=== PATIENT | male | born 1960 | race Caucasian/White ===

== ENCOUNTER 2020-03-07 16:53 | Outpatient (CLI) | payer BC, SELFPAY ==
[2020-03-07 17:18] LABS: Add Urine Microscopic? YES; Appearance Urine Clear (Clear); Bilirubin Urine Negative (Negative); Blood Urine Negative (Negative); Color Urine Yellow (Yellow); Glucose Urine UA 3+ mg/dL (Negative); Ketones Urine Negative (Negative); Leukocyte Esterase Ur Negative LEU/UL (NEGATIVE); Mucus Urine Rare /lpf; Nitrate Urine Negative (Negative); Protein Urine Negative (Negative); RBC Urine 0-2 /hpf (0-2); Urobilinogen Urine Negative mg/dL (<2.0); WBC Urine 0-3 /hpf (0-3)
[2020-03-07 17:25] LABS: Specific Grav Ur 1.033 (1.001-1.035)
== END 2020-03-07 16:54 | disposition home or self-care (01) ==
LOC: ANHLAB 16:55
PROVIDERS: PCP Internal Medicine; Visit Provider Physician Assistant
DX: R10.9 Unspecified abdominal pain (principal)
CPT/HCPCS: 81001

== ENCOUNTER 2020-03-08 12:28 | Outpatient (CLI) | payer BC, SELFPAY ==
--- NOTE | ~2020-03-08 | CT_ITS ---
EXAMINATION: CT abdomen pelvis w con DATE: 03/08/2020 13:10 INDICATION: Right-sided low back pain TECHNIQUE: Computed tomography (CT) of the abdomen and pelvis was performed with 100 mL Omnipaque-350 intravenous contrast. Automated exposure control and iterative reconstruction technique were employe d. The dose-length product was 1357.75 mGy-cm. COMPARISON: None FINDINGS: Mild atelectasis in the lingula, right middle and bilateral lower lobes. Heart size is normal. Athero sclerotic coronary artery calcific a cyst. No pericardial or pleural effusion. Diffuse hepatic steato sis. Gallbladder, spleen, pancreas and bilateral adrenal glands are normal. Normal variant retained f etal lobulation the kidneys which enhance symmetrically with no hydronephrosis. Bilateral ureters are normal with no urolithiasis. Bladder is normal. Normal appendix. No abnormal bowel wall thickening o r obstruction. No free intraperitoneal gas or fluid. No pathologically enlarged abdominal or pelvic l ymphadenopathy. Mild lumbar dextrocurvature. Moderate thoracolumbar spondylosis. IMPRESSION: 1. No acute intra-abdominal/pelvic process. Reviewed, dictated and finalized at location B.
[2020-03-08 13:07] LABS: Estimated Glomerular Filt Rate > 60
== END 2020-03-08 12:29 | disposition home or self-care (01) ==
LOC: ANHIMG 12:41
PROVIDERS: PCP Internal Medicine; Visit Provider Physician Assistant
DX: M54.5 Low back pain (principal); G89.29 Other chronic pain
CPT/HCPCS: 74177; Q9967

== ENCOUNTER 2021-10-09 07:31 | Outpatient (CLI) | payer BC, SELFPAY ==
--- NOTE | 2021-10-23 13:54 | WPDSLEEPSTUD ---
Sleep Study Date of Study: 10/09/21 Ordering Provider: Johann Wilcox DO Interpreting Physician: Paula Acharya DO Sleep Study Type: Split Polysomnogram Height: 1.73 m Weight: 109.316 kg Body Mass Index: 36.6 Neck Circumference (inches): 18.5 Brock: 10 Reason for Sleep Study Unrefreshing sleep despite being on CPAP Sleep History The patient is a 61-year-old male with diabetes, hyperlipidemia, hypertension, GERD, CINDY and history of tobacco use had a sleep study ordered by his primary care for evaluation of 4 daytime sleepiness. The patient rarely awakens from sleep short of breath. He occasionally awakens at night with heartburn, belching or cough. He frequently snores loud enough that others complain. Rarely has trouble sleeping when he has a cold. He occasionally wakes up gasping for air throughout the night. He frequently has breathing problems at night observed by himself or others. He occasionally sweats excessively at night. He rarely has heart palpitations or irregular heartbeats during the night. He occasionally falls asleep during the day but never while driving. He rarely has trouble at school or work due to sleepiness. He denies sleep paralysis, cataplexy and hypnagogic / hypnopompic hallucinations. He rarely has nightmares. He occasionally remembers his dreams. He occasionally has thoughts racing through his mind. He rarely feels sad or depressed. He occasionally has anxiety. He rarely has muscular tension. He denies noticing parts of his body jerk. He frequently kicks during the night. He rarely experiences crawling and aching feelings in his legs but frequently has leg pain during the night. He denies grinding his teeth during sleep awakening with morning jaw pain. He is occasionally bothered by pain during the day and occasionally awakened by pain during the night. He occasionally wakes up feeling stiff in the morning. He occasionally wakes up with sore or achy muscles. He rarely wakes up in the neck or spine joints. He goes to bed at 10:30 p.m. on weekdays and 11:30 p.m. on weekends. It takes him 15 minutes to fall asleep. He wakes up 8 times throughout the night for unknown reasons. He is able to fall back asleep within minutes after adjusting his position. He wakes up at 6:30 a.m. on weekdays and 8:00 a.m. on the weekends. He typically gets 7 hours of sleep per night. He will stay in bed for 10 minutes after waking up in the morning. He currently lives with his . He does not consume any caffeinated beverages within 2 hours of bedtime. He does not engage in physical exercise before bedtime. Watch television before falling asleep. He he denies taking naps in the afternoon or the evening. He drinks 2 cups of caffeinated beverage per day. He quit smoking 32 years ago. He denies alcohol or recreational drug use. [facility] Past Medical History Medical History (Updated 10/23/21 @ 17:58 by Paula Acharya DO) Anxiety Dyslipidemia Essential (primary) hypertension Gastroesophageal reflux disease without esophagitis CINDY (obstructive sleep apnea) Pure hypercholesterolemia Type 2 diabetes mellitus with hyperglycemia Surgical History Surgical History History of surgery on arm right arm bicep reattachment Family History Family History Mother Patient's mother is Carcinoma of colon Family history of arthritis Family history of malignant neoplasm Family history of diabetes mellitus in first degree relative Father Patient's father is Family history of liver disease Family history of malignant neoplasm Family history of heart disease in male family member before age 55 Sibling Family history of mental disorder Depression Family history of diabetes mellitus in first degree relative Other Cerebrovascular accident Family history of congest
[2021-10-23 18:01] VITALS: BMI 36.6
== END 2021-10-10 06:57 | disposition home or self-care (01) ==
PROVIDERS: PCP Internal Medicine; Visit Provider Internal Medicine
DX: G47.33 Obstructive sleep apnea (adult) (pediatric) (principal); G47.61 Periodic limb movement disorder
CPT/HCPCS: 95811

== ENCOUNTER 2022-05-07 10:55 | Outpatient (CLI) | payer BC, SELFPAY ==
--- NOTE | ~2022-05-07 | XR_ITS ---
Left Knee Technique: AP, lateral, and sunrise views were obtained. Clinical History: Pain Findings: No fracture or dislocation is seen. Osseous alignment is anatomic. Minimal patellar spurrin g noted. Soft tissues are unremarkable. No joint effusion is seen. Impression: Minimal patellar degenerative spurring. No fracture or dislocation. Reviewed, dictated and finalized at location [] IOLOGIST Impression: Minimal patellar degenerative spurring. No fracture or dislocation.
== END 2022-05-07 10:56 | disposition home or self-care (01) ==
PROVIDERS: PCP Internal Medicine; Visit Provider Internal Medicine
DX: M25.562 Pain in left knee (principal)
CPT/HCPCS: 73562

== ENCOUNTER → 2022-05-15 13:09 | Outpatient (CLI) | payer BC, SELFPAY ==
--- NOTE | ~2022-05-15 | US_ITS ---
Ultrasound of the left lower extremity CLINICAL HISTORY: Left knee pain TECHNIQUE: Sonographic imaging of the posterior left knee was performed. FINDINGS: No fluid collection or Pozo's cyst identified. No abnormal mass lesion identified. No sign ificant abnormality seen. IMPRESSION: No significant abnormality seen at the posterior left knee. Reviewed, dictated and finalized at [facility]. CHER FEEDER
== END ==
PROVIDERS: PCP Internal Medicine; Visit Provider Internal Medicine
DX: M25.562 Pain in left knee (principal)
CPT/HCPCS: 76882

== ENCOUNTER 2022-05-15 14:07 | Outpatient (CLI) | payer BC, SELFPAY ==
[2022-05-15 23:16] LABS: Influenza A QL RT-PCR Positive (Negative); Influenza B QL RT-PCR Negative (Negative); SARS-CoV-2 RNA PCR Negative
== END 2022-05-15 14:08 | disposition home or self-care (01) ==
LOC: ANHLAB 14:09
PROVIDERS: PCP Internal Medicine; Visit Provider Internal Medicine
DX: R50.9 Fever, unspecified (principal); Z20.822 Contact with and (suspected) exposure to COVID-19
CPT/HCPCS: 87636

== ENCOUNTER → 2022-05-31 12:18 | Outpatient (CLI) | payer BC, SELFPAY ==
--- NOTE | ~2022-05-31 | MR_ITS ---
EXAMINATION: MR knee LT wo con DATE: 05/31/2022 13:38 INDICATION: Left knee pain. TECHNIQUE: Magnetic resonance imaging (MRI) of the left knee was performed without intravenous contra st. Sequences included axial PD-weighted FS FSE, coronal PD-weighted FSE and PD-weighted FS FSE, sagi ttal PD-weighted FSE, and sagittal T2-weighted FS FSE. COMPARISON: Left knee radiographs 05/07/2022 FINDINGS: Medial compartment: There is an undersurface horizontal tear involving posterior horn and body of medial meniscus. There is partial-thickness cartilage loss of tibial condyle, worst at the anteromedial articular surface wh ere there is mild subchondral edema-like marrow signal intensity. There is partial-thickness cartilag e loss of femoral condyle, deep at the lateral articular surface. Osteophytes are noted. Lateral compartment: There is an upper surface horizontal tear of body of lateral meniscus. There is cartilage surface irr egularity of tibial condyle and femoral condyle. Osteophytes are noted. Patellofemoral compartment: There is deep partial thickness cartilage loss of patellar medial facet with mild subchondral edema-l nabila signal intensity. There is deep partial thickness cartilage loss of medial trochlea. There is ful l-thickness cartilage loss of distal central trochlea with mild subchondral edema-like signal intensi ty. Osteophytes are noted. Ligaments and tendons: The anterior and posterior cruciate ligaments are normal. There are changes of prior sprains of media l collateral ligament and fibular collateral ligament characterized by thickening and increased signa l intensity. There is mild patellar tendinopathy. Fluid: There is a moderate-sized knee joint effusion. There is a moderate-sized Pozo's cyst. There is mild prepatellar and superficial infrapatellar bursitis. IMPRESSION: 1. Severe chondrosis of patellofemoral compartment, moderate chondrosis of medial compartment, and mi ld chondrosis of lateral compartment. 2. Tears of medial and lateral menisci. 3. Moderate-sized knee joint effusion. 4. Moderate-sized Pozo's cyst. Reviewed, dictated and finalized at location A. [employer] SUPERVISOR IMPRESSION: 1. Severe chondrosis of patellofemoral compartment, moderate chondrosis of medi al compartment, and mild chondrosis of lateral compartment. 2. Tears of medial and lateral menisci. 3. Moderate-sized knee joint effusion. 4. Moderate-sized Pozo's cyst.
== END ==
PROVIDERS: PCP Internal Medicine; Visit Provider Internal Medicine
DX: M25.562 Pain in left knee (principal); M22.2X2 Patellofemoral disorders, left knee; S83.282A Other tear of lateral meniscus, current injury, left knee, initial encounter; S83.242A Other tear of medial meniscus, current injury, left knee, initial encounter; M25.462 Effusion, left knee; M71.22 Synovial cyst of popliteal space [Baker], left knee
CPT/HCPCS: 73721

== ENCOUNTER 2022-06-04 07:50 | Outpatient (RCR) | payer BC, SELFPAY ==
--- NOTE | 2022-06-04 09:22 | PTOPEVAL1 ---
Assessment and note entered by Ashley Holbrook PT Evaluation Information Assessment Status Evaluation Diagnosis L knee posterior medial and lateral meniscal tear Onset Apr 28, 2022 Subjective Information pain in knee after putting up [place] lights; general dr gave him steroids, then to ortho dr and had MRI; had injection into knee yesterday; currently on anti inflammatory; knee pain is better than initial injury; dr discussed surgery with him, but going to try therapy and see how knee pain is; Reported Pain Level Pain Score Self Report L knee Additional Pain Score Comments pain range of 0-4/10; radiating lateral knee to anterior knee; throbbing pain; is less than was initially; increase pain with bending knee and stairs; decrease pain with sit, rest, ice, meds; sleeping is OK; is doing all of his home and work tasks; Assessment PT Clinical Summary Charly Tsai - has the diagnosis of L knee pain, posterior medial and lateral meniscal tears per MRI. He reports his pain is less and he is doing more activity. He avoids stairs due to knee pain, and bending his knee did hurt, but not anymore. There is not any swelling of his knee. With the evaluation, L knee ROM is 0-120' and without pain; single leg standing does not increase his pain; during the evaluation, there was not any pain reported with the motions and testing; He has slight decreased L hip ER motion, with issues putting on his L shoe and sock and tightness over B hamstrings. He was educated and issued a home exercise program for strengthening his knee and was instructed to increase activity as tolerated. He is now doing all of his usual home and work tasks, but avoiding the stairs. His plan of treatment is 0-2x/week for 4 weeks; he is to call if he has any questions or if needs an appointment for additional treatment. He is to monitor his pain and if there is any swelling or issues with his knee. Plan of Care Interventions Electrical Stimulation,Hot Pack/Cold Pack,Manual Therapy,Neuro Re-education,Therapeutic Activities, Therapeutic Exercise PT Services Indicated Yes Treatment Frequency and 0-2x/wk for 4 weeks Duration
--- NOTE | 2022-08-09 13:18 | PCPTNOTE ---
PHYSICAL THERAPY DISCHARGE 08-09-22 Attending Provider: Lino Matos MD Patient:Eulalio Silva Date of :1960 Charly has not returned for any further treatments since the eval on 06/04/2022, for L knee pain; therefore he will be discharged at this time. At the eval, he was educated on exercises and was to call if he had any further needs for PT. The goals were not addressed. Thank you for referring Mr. Silva to [facility].
== END 2022-08-12 10:47 | disposition home or self-care (01) ==
LOC: ANHPT 07:50
PROVIDERS: PCP Internal Medicine; Visit Provider Orthopaedic Surgery
DX: S83.282D Other tear of lateral meniscus, current injury, left knee, subsequent encounter (principal); S83.242D Other tear of medial meniscus, current injury, left knee, subsequent encounter
CPT/HCPCS: 97110; 97161

== ENCOUNTER 2023-02-14 13:33 | Outpatient (CLI) | payer BC, SELFPAY ==
--- NOTE | ~2023-02-14 | CT_ITS ---
EXAMINATION: CTA chest DATE: 02/14/2023 14:44 INDICATION: Chest pain. Rule out aortic aneurysm. TECHNIQUE: Computed tomography (CT) of the chest was performed with 100 CC Omnipaque 350 intravenous contrast. Automated exposure control and iterative reconstruction technique were employed. Exam dose: 766.02 mGy-cm total exam DLP. COMPARISON: None FINDINGS: Mild discoid atelectasis or scarring is noted in the middle lobe, lingula and lower lobes. No pulmonary consolidation or pulmonary mass lesion. Normal heart size. Coronary artery calcification. No pericardial or pleural effusion. No thoracic aortic aneurysm or dissection. No evidence of pulmonary embolism. No hilar or mediastinal mass lesion or lymphadenopathy. Normal morphology of the adrenal glands. There is prominent thickening of the wall of the stomach; clinical correlation is recommended. Diffuse idiopathic skeletal hyperostosis of the thoracic spine. IMPRESSION: No thoracic aortic aneurysm or dissection Reviewed, dictated and finalized at Location A. Reviewed, dictated and finalized at location A.
--- NOTE | 2023-02-14 13:43 | ECHO_ITS ---
Patient Info Name: Eulalio Silva Age: 62 years : 1960 Gender: Male Ht: 68 in Wt: 240 lbs BSA: 2.33 m2 HR: 85 bpm BP: 145 / 92 mmHg Technical Quality: Fair Exam Date: 02/14/2023 1:47 PM Exam Location: [facility] Patient Status: Outpatient Admit Date: 02/14/2023 Staff Ordering Physician: Johann Wilcox DO Manager Access: Shelley Lyons RDCS Attending Provider: Johann Wilcox DO Referring Physician: Jeri MOFFETT; Exam Type: CA echo doppler color flow Study Info Indications R06.09 - Other forms of dyspnea Complete two-dimensional, color flow and Doppler transthoracic echocardiogram is performed. Summary 1. Complete two-dimensional, color flow and Doppler transthoracic echocardiogram is performed. 2. Left ventricular chamber dimension is normal. 3. Left ventricular systolic function is normal, estimated at 60-65%. 4. The left ventricular diastolic function is grade I diastolic dysfunction. 5. E/e' 7 is not elevated. 6. Global longitudinal strain is abnormal at -16.1%. 7. The mitral valve has mildly calcified anterior leaflet. 8. There is an small echogenic mobile mass attached to anterior mitral leaflet and differential includes vegetation or calcified chordae tendinae. Consider EVANGELIST if clinically indicated. 9. No pulmonary hypertension, estimated pulmonary arterial systolic pressure is 28 mmHg. 10. There is trivial pericardial effusion. Left Ventricle E/e' 7 is not elevated. Global longitudinal strain is abnormal at -16.1%. Left ventricular chamber dimension is normal. Left ventricular systolic function is normal, estimated at 60-65%. The left ventricular diastolic function is grade I diastolic dysfunction. Right Ventricle Right ventricular systolic function is normal and with normal TAPSE 1.8 cm. Right ventricular chamber dimension is normal. Left Atria Left atrial chamber dimension is normal. Right Atria Right atrial chamber dimension is normal. Aortic Valve The aortic valve is trileaflet. There is no aortic valve stenosis. There is no aortic valve regurgitation. Pulmonic Valve There is no pulmonic regurgitation. Mitral Valve The mitral valve has mildly calcified anterior leaflet. There is an small echogenic mobile mass attached to anterior mitral leaflet and differential includes vegetation or calcified chordae tendinae. Consider EVANGELIST if clinically indicated. There is no mitral valve stenosis. There is no mitral valve regurgitation. Tricuspid Valve There is no tricuspid valve regurgitation. No pulmonary hypertension, estimated pulmonary arterial systolic pressure is 28 mmHg. Pericardium/Pleural There is trivial pericardial effusion. Inferior Vena Cava Normal inferior vena cava with >50% collapse upon inspiration consistent with normal right atrial pressure, 5 mmHg. Aorta The aortic root size at the sinus of Valsalva is normal. Left Ventricular Outflow Tract Name Value Normal LVOT 2D LVOT Diameter 2.0 cm LVOT Doppler LVOT Peak Gradient 5 mmHg LVOT Mean Gradient 2 mmHg LVOT VTI 18 cm LVOT VTI/AV VTI Ratio 1.0 LVOT Stroke Volume
[2023-02-14 14:37] LABS: Estimated Glomerular Filt Rate > 60
== END 2023-02-14 13:34 | disposition home or self-care (01) ==
PROVIDERS: PCP Internal Medicine; Visit Provider Internal Medicine
DX: R07.9 Chest pain, unspecified (principal); R06.09 Other forms of dyspnea
CPT/HCPCS: 71275; 93306; Q9967

== ENCOUNTER 2023-02-27 10:40 | Outpatient (CLI) | payer BC, SELFPAY ==
[2023-02-27 11:52] LABS: Influenza A QL RT-PCR Negative (Negative); Influenza B QL RT-PCR Negative (Negative); RSV RNA, RT-PCR Negative (Negative); SARS-CoV-2 RNA PCR Negative (Negative)
== END 2023-02-27 10:41 | disposition home or self-care (01) ==
LOC: ANHLAB 10:42
PROVIDERS: PCP Internal Medicine; Visit Provider Physician Assistant
DX: R68.89 Other general symptoms and signs (principal); Z20.822 Contact with and (suspected) exposure to COVID-19
CPT/HCPCS: 87637

== ENCOUNTER 2023-03-31 00:11 | Day surgery (SDC) | payer BC, SELFPAY ==
[2023-03-18 14:14] VITALS: BMI 36.6
--- NOTE | 2023-03-28 09:56 | SUR.PREOP ---
Patient called regarding upcoming procedure. Reviewed preop instructions, appointment times, and procedure prep.
[2023-03-31 07:57] VITALS: BP 126/83; PULSE 95; RESP 18; TEMP 36.3; O2SAT 97
[2023-03-31] MEDS: LACTATED RINGERS 1,000 ML 150 ML IV CONT (08:06)
[2023-03-31 08:08] LABS: Glucose Point of Care 130 mg/dl (65-105)
--- NOTE | 2023-03-31 08:22 | PM.HPGS ---
History of Present Illness History of Present Illness Consent: Risks, benefits, and alternatives have been discussed and questions answered. Patient agrees to proceed with procedure. Chief complaint: family hx of colon ca, abnormal CT scan Narrative: Eulalio Silva is a 62 year old male Referred for both colonoscopy and EGD. Patient's family history is significant that his mother had colon cancer. Patient presents for neoplasia screening. He had a benign hyperplastic colon polyp in 2018. Patient also has a history of GE reflux with a normal EGD in 2018. Patient recently had as CT scan of the chest which suggested possible thickening of the gastric lining. For this reason an EGD is requested. Patient denies any difficulties with heartburn or abdominal pain at present. Review of Systems Review of Systems: Review of systems noncontributory. [facility] Past Medical History Medical History Anxiety Dyslipidemia Essential (primary) hypertension Gastroesophageal reflux disease without esophagitis History of stress test CINDY (obstructive sleep apnea) Pure hypercholesterolemia Type 2 diabetes mellitus with hyperglycemia Surgical History Surgical History History of surgery on arm right arm bicep reattachment History of tooth extraction Family History Family History Mother Patient's mother is Carcinoma of colon Family history of arthritis Family history of malignant neoplasm Family history of diabetes mellitus in first degree relative Father Patient's father is Family history of liver disease Family history of malignant neoplasm Family history of heart disease in male family member before age 55 Sibling Family history of mental disorder Depression Family history of diabetes mellitus in first degree relative Other Cerebrovascular accident Family history of congestive heart failure Family history of lung disease Social History Social History Smoking packs per day: 1 Smoking cigarettes per day: 20.0 Years smoked: 20 Smoking pack-years: 20.00 Smoking status: Former smoker Smokeless tobacco user: chewing tobacco Second hand tobacco smoke exposure: No Alcohol intake: current Alcohol use details: occasional Substance use: never Lack of Transportation: No Lack of Food: Never True Current Housing: I Have Housing Concerned About Future Housing: No Difficulty Paying Gas/Electric Bills: No Difficulty Paying for Meds: No Currently Unemployed: No Education: Master's Degree or Higher Difficulty w/ Childcare or Family Care: No Living arrangements: with family Occupation/Education: occupation 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 [employer] Home Medications and Allergies Home Medications Medication Instructions Recorded Confirmed Type aspirin 81 mg tablet,delayed 81 mg PO DAILY 04/12/19 03/31/23 History release (Adult Aspirin Regimen) cholecalciferol (vitamin D3) 125 5,000 unit PO DAILY 04/12/19 03/31/23 History mcg (5,000 unit) capsule cetirizine 10 mg tablet (Zyrtec) 10 mg PO DAILY 02/04/20 03/31/23 History Calcium MG Zinc 1 tab-cap PO DAILY 04/01/22 03/31/23 History ferrous sulfate 325 mg (65 mg 325 mg PO DAILY 04/01/22 03/31/23 History iron) tablet (FeroSul) mecobalamin (vitamin B12) 1,000 1,000 mcg PO DAILY 04/01/22 03/31/23 History mcg chewable tablet multivitamin (Daily Multi-Vitamin 1 tablet PO DAILY 04/01/22 03/31/23 History tablet) atorvastatin 40 mg tablet 40 mg PO QHS 90 days #90 tabs 07/01/22 03/31/23 Rx magnesium oxide 400 mg (241.3 mg 400 mg PO BID #180 tabs 10/03/22 03/31/23 Rx magnesium) tablet (MagOx) lisinopril 10 mg tablet 10 mg PO DAILY #90 tabs 10/28/22 03/31/23 R
--- NOTE | 2023-03-31 08:39 | WPDANESEPPF ---
Anes - Initial Pre Proc Eval Procedure: Operation Date: 03/31/23 09:00 Proposed Procedures p Esophagogastroduodenoscopy & Colonoscopy - Edwardo Johnson MD Date/Time: 03/31/23 08:39 Surgeon: Edwardo Johnson MD Pre Op Diagnosis: family hx of colon ca, abnormal CT scan Patient Data Age: 62 Gender: M Height: 1.73 m Weight: 105.2 kg Last Vital Signs Temp 97.4 F L 03/31/23 07:57 Pulse 95 03/31/23 07:57 Resp 18 03/31/23 07:57 BP 126/83 03/31/23 07:57 Pulse Ox 97 03/31/23 07:57 O2 Del Method Room Air 03/31/23 07:57 Allergies Allergy/AdvReac Type Severity Reaction Status Date / Time meperidine [From Demerol] Allergy Severe severe Verified 03/31/23 07:55 sweating Home Medications Medication Instructions Recorded Confirmed Type aspirin 81 mg tablet,delayed 81 mg PO DAILY 04/12/19 03/31/23 History release (Adult Aspirin Regimen) cholecalciferol (vitamin D3) 125 5,000 unit PO DAILY 04/12/19 03/31/23 History mcg (5,000 unit) capsule cetirizine 10 mg tablet (Zyrtec) 10 mg PO DAILY 02/04/20 03/31/23 History Calcium MG Zinc 1 tab-cap PO DAILY 04/01/22 03/31/23 History ferrous sulfate 325 mg (65 mg 325 mg PO DAILY 04/01/22 03/31/23 History iron) tablet (FeroSul) mecobalamin (vitamin B12) 1,000 1,000 mcg PO DAILY 04/01/22 03/31/23 History mcg chewable tablet multivitamin (Daily Multi-Vitamin 1 tablet PO DAILY 04/01/22 03/31/23 History tablet) atorvastatin 40 mg tablet 40 mg PO QHS 90 days #90 tabs 07/01/22 03/31/23 Rx magnesium oxide 400 mg (241.3 mg 400 mg PO BID #180 tabs 10/03/22 03/31/23 Rx magnesium) tablet (MagOx) lisinopril 10 mg tablet 10 mg PO DAILY #90 tabs 10/28/22 03/31/23 Rx empagliflozin 25 mg tablet 25 mg PO DAILY #90 tabs 01/08/23 03/31/23 Rx (Jardiance) metformin 500 mg tablet,extended 1,000 mg PO BID 90 days #360 tabs 01/08/23 03/31/23 Rx release 24 hr semaglutide 2 mg/dose (8 mg/3 mL) 2 mg (0.75 mL) subcut WEEKLY #9 mL 01/08/23 03/31/23 Rx subcutaneous pen injector (Ozempic) rabeprazole 20 mg tablet,delayed 20 mg PO BID #180 tabs 01/21/23 03/31/23 Rx release (AcipHex) codeine 10 mg-guaifenesin 100 mg/5 10 ml PO QHS PRN cough #120 mL 03/10/23 03/31/23 Rx mL oral liquid amoxicillin 875 mg-potassium 1 tablet PO BID #20 tabs 03/13/23 03/31/23 Rx clavulanate 125 mg tablet Laboratory Tests 03/31/23 08:05 POC Capillary Glucose 130 H mg/dl (65-105) Patient hx anesthesia problems: none Family hx anesthesia problems: none Results Review: All pre-operative results and documents have been reviewed as part of the pre-operative evaluation. [facility] Past Medical History Medical History Anxiety Dyslipidemia Essential (primary) hypertension Gastroesophageal reflux disease without esophagitis History of stress test CINDY (obstructive sleep apnea) Pure hypercholesterolemia Type 2 diabetes mellitus with hyperglycemia Surgical History Surgical History History of surgery on arm right arm bicep reattachment History of tooth extraction Family History Family History Mother Patient's mother is Carcinoma of colon Family history of arthritis Family history of malignant neoplasm Family history of diabetes mellitus in first degree relative Father Patient's father is Family history of liver disease Family history of malignant neoplasm Family history of heart disease in male family member before age 55 Sibling Family history of mental disorder Depression Family history of diabetes mellitus in first degree relative Other Cerebrovascular accident Family history of congestive heart failure Family history of lung disease Social History Social History Smoking packs per day: 1 Smokin
[2023-03-31 09:25] VITALS: BP 105/74; PULSE 96; RESP 28; O2SAT 95
[2023-03-31 09:35] VITALS: BP 118/83; PULSE 84; RESP 25; O2SAT 96
--- NOTE | 2023-03-31 09:43 | SUR.OPER ---
EGD START 902, END 906 COLONOSCOPY START 911, END 923
[2023-03-31 09:45] VITALS: BP 114/79; PULSE 87; RESP 24; O2SAT 98
== END 2023-03-31 09:55 | disposition home or self-care (01) ==
PROVIDERS: PCP Internal Medicine; Visit Provider Internal Medicine Gastroenterology
PROC: 0DJ08ZZ Inspection of Upper Intestinal Tract, Via Natural or Artificial Opening Endoscopic (ICD-10-PCS; CPT 43235; principal; 2023-03-31 09:00)
DX: R93.3 Abnormal findings on diagnostic imaging of other parts of digestive tract (principal); Z12.11 Encounter for screening for malignant neoplasm of colon; K31.89 Other diseases of stomach and duodenum; K64.8 Other hemorrhoids; F41.9 Anxiety disorder, unspecified; I10 Essential (primary) hypertension; E11.9 Type 2 diabetes mellitus without complications; K21.9 Gastro-esophageal reflux disease without esophagitis; G47.33 Obstructive sleep apnea (adult) (pediatric); E78.00 Pure hypercholesterolemia, unspecified; E66.9 Obesity, unspecified; Z68.35 Body mass index [BMI] 35.0-35.9, adult; Z80.0 Family history of malignant neoplasm of digestive organs; Z82.49 Family history of ischemic heart disease and other diseases of the circulatory system; Z87.891 Personal history of nicotine dependence; Z79.82 Long term (current) use of aspirin; Z79.84 Long term (current) use of oral hypoglycemic drugs; Z79.85 Long-term (current) use of injectable non-insulin antidiabetic drugs; Z79.891 Long term (current) use of opiate analgesic
CPT/HCPCS: 43239; 45378; 82948; 88305; J2704; J7120

== ENCOUNTER 2023-05-13 08:03 | Outpatient (CLI) | payer BC, SELFPAY | END 2023-05-13 08:04 | disposition home or self-care (01) | PROVIDERS: PCP Internal Medicine; Visit Provider Otolaryngology | DX: H90.3 Sensorineural hearing loss, bilateral (principal) | CPT/HCPCS: 92557; 92567 ==

== ENCOUNTER 2024-09-27 13:33 | Outpatient (CLI) | payer BC, SELFPAY ==
--- NOTE | ~2024-09-27 | XR_ITS ---
Right Knee Technique: AP, lateral, and sunrise views were obtained. Clinical History: Osteoarthritis Findings: No fracture or dislocation is seen. There is mild degenerative change of the medial compart ment and patellofemoral compartment. Soft tissues are unremarkable. No joint effusion is seen. Impression: Mild degenerative changes, as above. Reviewed, dictated and finalized at location M. Impression: Mild degenerative changes, as above.
--- NOTE | ~2024-09-27 | XR_ITS ---
Left Knee Technique: AP, lateral, and sunrise views were obtained. Clinical History: Osteoarthritis Findings: No fracture or dislocation is seen. Osseous alignment is anatomic. Mild tricompartmental de generative change present. Soft tissues are unremarkable. No joint effusion is seen. Impression: Mild tricompartmental degenerative change. Reviewed, dictated and finalized at location . Impression: Mild tricompartmental degenerative change.
== END 2024-09-27 13:34 | disposition home or self-care (01) ==
PROVIDERS: PCP Student in an Organized Health Care Education/Training Program; Visit Provider Orthopaedic Surgery
DX: M17.0 Bilateral primary osteoarthritis of knee (principal)
CPT/HCPCS: 73564

== ENCOUNTER 2024-11-04 07:01 | Outpatient (CLI) | payer BC, SELFPAY ==
--- NOTE | ~2024-11-04 | XR_ITS ---
XR hand LT min 3V 11/04/2024 07:15 Indication: Right hand pain Procedure: 3 views right hand Comparison: No prior studies for comparison. Findings: There is polyarticular osteoarthritis. No fracture, subluxation or dislocation. No soft tis danielle abnormality. No foreign bodies. There is a loose body distal to the ulna, likely related to degen erative change or remote trauma. Impression: 1: Mild polyarticular osteoarthritis involving the interphalangeal and first metacarpophalangeal join ts. Reviewed, dictated and finalized at location [] Impression: 1: Mild polyarticular osteoarthritis involving the interphalangeal and first me tacarpophalangeal joints.
--- NOTE | ~2024-11-04 | XR_ITS ---
XR hand RT min 3V 11/04/2024 07:15 Indication: Right hand pain Procedure: 3 views right hand Comparison: No prior studies for comparison. Findings: There is polyarticular osteoarthritis of the triscaphe, first carpal metacarpal and metacar pal phalangeal joints as well as multiple interphalangeal joints. No fracture or traumatic malalignme nt. No soft tissue abnormality. No foreign bodies. Impression: 1: Mild polyarticular osteoarthritis. Reviewed, dictated and finalized at location [] Impression: 1: Mild polyarticular osteoarthritis.
== END 2024-11-04 07:02 | disposition home or self-care (01) ==
LOC: MICIMG 07:03
PROVIDERS: PCP Student in an Organized Health Care Education/Training Program; Visit Provider Plastic Surgery
DX: M19.042 Primary osteoarthritis, left hand (principal); M19.041 Primary osteoarthritis, right hand
CPT/HCPCS: 73130

== ENCOUNTER 2025-04-20 12:23 | Outpatient (CLI) | payer BC, SELFPAY ==
--- NOTE | ~2025-04-20 | XR_ITS ---
EXAMINATION: XR knee LT min 4V, 04/20/2025 12:28 HAND STONE POLISHER HISTORY: M17.0 - Bilateral primary osteoarthritis of knee COMPARISON: No comparisons available. Findings: No acute fracture or malalignment. Moderate tricompartmental degenerative changes Soft tissues unremarkable. Impression: No acute fracture or malalignment. Reviewed, dictated and finalized at location P. STONE POLISHER Impression: No acute fracture or malalignment.
--- NOTE | ~2025-04-20 | XR_ITS ---
EXAMINATION: XR knee RT min 4V, 04/20/2025 12:28 CUSTOMER ACQUISITION MANAGER HISTORY: M17.0 - Bilateral primary osteoarthritis of knee COMPARISON: No comparisons available. Findings: No acute fracture or malalignment. Moderate to severe tricompartmental degenerative changes with small effusion Soft tissues unremarkable. Impression: No acute fracture or malalignment. Reviewed, dictated and finalized at location P. OMER ACQUISITION MANAGER Impression: No acute fracture or malalignment.
== END 2025-04-20 12:24 | disposition home or self-care (01) ==
LOC: MICIMG 12:25
PROVIDERS: PCP Student in an Organized Health Care Education/Training Program; Visit Provider Orthopaedic Surgery
DX: M17.0 Bilateral primary osteoarthritis of knee (principal); M25.461 Effusion, right knee
CPT/HCPCS: 73564